=== PATIENT | female | born 1990 | race Caucasian/White ===

== ENCOUNTER 2022-05-30 18:52 | Emergency (ER) | payer BC, SELFPAY ==
[2022-05-30] VITALS (7 sets, daily range): BP systolic 117; BP diastolic 85; PULSE 69–106; RESP 16–18; TEMP 36.6–37; O2SAT 95–96; BMI 38.9
--- NOTE | 2022-05-30 19:10 | ED_ITS ---
HPI - Psych General Chief Complaint: Psychiatric Symptoms Stated Complaint: Crisis/ Anxiety Time Seen by Provider: 05/30/22 19:35 Related Data Home Medications Medication Instructions Recorded Confirmed benzonatate 100 mg capsule 2 cap PO TID PRN Cough 05/30/22 05/30/22 fluoxetine 20 mg capsule 1 cap PO DAILY 05/30/22 05/30/22 naproxen 500 mg tablet 1 tab PO BID PRN pain 05/30/22 05/30/22 Allergies Allergy/AdvReac Type Severity Reaction Status Date / Time No Known Allergies Allergy Unverified 12/18/19 19:27 [No Known Allergies*] [facility] Past Medical History Medical History (Updated 06/01/22 @ 00:00 by Background Daemon) Depression Social History Social History Alcohol intake: never Physical Exam Vital Signs: Vital Signs: Last Vital Signs Temp 98.3 F 05/31/22 10:30 Pulse 76 05/31/22 10:30 Resp 16 05/31/22 10:30 BP 112/62 05/31/22 10:30 Pulse Ox 99 05/31/22 10:30 O2 Del Method 05/31/22 10:30 BMI result Body Mass Index 38.9 Course Course Course Narrative: RME--32-year-old female with PMHx anxiety/depression presenting to ED with mother and sister for increasing depression/anxiety and change in mental status. History obtained from mother and sister as patient mute, not interactive with triage. They admit to similar sx in the past, patient was hospitalized about 3yrs ago Labs, UA, MOREAU, COVID ordered, patient will be brought back to POD Medications Administered Discontinued Medications Generic Name Dose Route Start Last Admin Trade Name Estefani PRN Reason Stop Dose Admin Lorazepam 2 mg 05/31/22 01:18 05/31/22 01:39 Lorazepam 1 Mg Tablet PO 05/31/22 01:19 2 mg ONCE ONE Administration Lorazepam 1 mg 05/31/22 12:35 05/31/22 15:43 Lorazepam 1 Mg Tablet PO 1 mg TID KIM Administration Olanzapine 5 mg 05/30/22 20:07 05/30/22 21:08 Olanzapine 5 Mg Tablet PO 05/30/22 20:08 Not Given ONCE ONE Olanzapine 10 mg 05/30/22 21:19 05/30/22 21:35 Olanzapine 10 Mg Vial IM 05/30/22 21:20 10 mg ONCE ONE Administration Olanzapine 10 mg 05/31/22 01:18 05/31/22 01:40 Olanzapine 10 Mg Tablet PO 05/31/22 01:19 10 mg ONCE ONE Administration Medical Decision Making Lab Data 05/31/22 10:35 05/31/22 10:35 Labs: Lab Results 05/30/22 05/31/22 05/31/22 Range/Units 21:43 10:35 10:35 WBC 7.8 (4.8-10.8) X10*3/uL RBC 4.23 (4.20-5.50) X10*6/uL Hgb 11.3 L (12.0-16.0) g/dl Hct 35.9 L (37.0-47.0) % MCV 84.9 (80.0-98.0) fL MCH 26.7 L (27.0-33.0) pg MCHC 31.5 (31.0-35.0) g/dl RDW 15.4 (11.0-16.0) % Plt Count 260 (160-400) X10*3/uL MPV 10.3 (9.4-12.3) fL Immature Gran % (Auto) 0.1 (0.0-0.4) % Neut % (Auto) 53.1 (45-73) % Lymph % (Auto) 39.3 (20-40) % Green % (Auto) 6.4 (2-11) % Eos % (Auto) 0.8 (0-4) % Baso % (Auto) 0.3 (0-2) % Lymph # (Auto) 3.1 (1.2-4.9) X10*3/uL Green # (Auto) 0.5 (0.1-1.2) X10*3/uL Eos # (Auto) 0.1 (0.0-0.4) X10*3/uL Baso # (Auto) 0.0 (0.0-0.2) X10*3/uL Abs Immat Gran (auto) 0.01 (0.00-0.03) X10*3/uL Absolute Neuts (auto) 4.2 (2.0-8.3) x10*3/uL Absolute Nucleated RBC 0.000 (0.0-0.012) X10*3/uL Nucleated RBC % (auto) 0.0 (0.0-0.2) /100WBC Sodium 142 (135-145) mmol/L Potassium 4.3 (3.3-5.1) mmol/L Chloride 108 (96-108) mmol/L Carbon Dioxide 28 (22-29) mmol/L Anion Gap 10 L (12-20) BUN 11 (9-16) mg/dL Creatinine 0.68 (0.5-1.4) mg/dL Estim Creat Clear Calc 135.0 Estimated GFR > 60 Random Glucose 81 (60-115) mg/dL Calcium 9.2 (8.4-10.2) mg/dL Magnesium 1.9 (1.6-2.6) mg/dL Total Bilirubin 0.7 (0.0-1.0) mg/dL Direct Bilirubin 0.2 (0.0-0.5) mg/dL AST 19 (5-31) U/L ALT 24 (0-31) U/L Alkaline Phosphatase 72 (39-117) U/L Total Protein 7.5 (6.5-8.0) g/dL Albumin 3.9 (3.5-5.0) g/dL Urine Color Urine Appearance Urine pH (5.0-9.0) Ur Specific [place] (1.005-1.025) Urine Protein (Neg-Trace) mg/dL Urine Glucose (UA) (Negative) mg/dL Urine Ketones (Negative) mg/dL Urine Blood (Negative) Urine Nitrite (Negative) Ur Leukocyte Esterase (Negative) Urine RBC (0-2) /HPF Urine WBC (0-5) /HPF Ur Squamous Epith Cells (0-2) /HPF Urine Bacteria (None Seen) Hyaline Casts (0-2) /LPF Urine Test (NEGATIVE) Salicylates < 5.0 L (15-30) mg/dL Urine Opiates Screen (Not Detect) Urine Fentanyl Screen (Not Detect) Acetaminophen < 17 (<30) mcg/mL Ur Barbiturates Screen (Not Detect) Ur Phencyclidine Scrn (Not Detect) Ur Amphetamines Screen (Not Detect) U Benzodiazepines Scrn (Not Detect) Urine Cocaine Screen (Not Detect) U Marijuana (THC) Screen (Not Detect) COVID-19 (SHARONDA) Negative (Negative) COVID-19 Clin Com See Note 05/31/22 05/31/22 05/31/22 Range/Units 11:32 11:32 11:32 WBC (4.8-10.8) X10*3/uL RBC (4.20-5.50) X10*6/uL Hgb (12.0-16.0) g/dl Hct (37.0-47.0) % MCV (80.0-98.0) fL MCH (27.0-33.0) pg MCHC (31.0-35.0) g/dl RDW (11.0-16.0) % Plt Count (160-400) X10*3/uL MPV (9.4-12.3) fL Immature Gran % (Auto) (0.0-0.4) % Neut % (Auto) (45-73) % Lymph % (Auto) (20-40) % Green % (Auto) (2-11) % Eos % (Auto) (0-4) % Baso % (Auto) (0-2) % Lymph # (Auto) (1.2-4.9) X10*3/uL Green # (Auto) (0.1-1.2) X10*3/uL Eos # (Auto) (0.0-0.4) X10*3/uL Baso # (Auto) (0.0-0.2) X10*3/uL Abs Immat Gran (auto) (0.00-0.03) X10*3/uL Absolute Neuts (auto) (2.0-8.3) x10*3/uL Absolute Nucleated RBC (0.0-0.012) X10*3/uL Nucleated RBC % (auto) (0.0-0.2) /100WBC Sodium (135-145) mmol/L Potassium (3.3-5.1) mmol/L Chloride (96-108) mmol/L Carbon Dioxide (22-29) mmol/L Anion Gap (12-20) BUN (9-16) mg/dL Creatinine (0.5-1.4) mg/dL Estim Creat Clear Calc Estimated GFR Random Glucose (60-115) mg/dL Calcium (8.4-10.2) mg/dL Magnesium (1.6-2.6) mg/dL Total Bilirubin (0.0-1.0) mg/dL Direct Bilirubin (0.0-0.5) mg/dL AST (5-31) U/L ALT (0-31) U/L Alkaline Phosphatase (39-117) U/L Total Protein (6.5-8.0) g/dL Albumin (3.5-5.0) g/dL Urine Color Yellow Urine Appearance Clear Urine pH 6.0 (5.0-9.0) Ur Specific [place] 1.015 (1.005-1.025) Urine Protein Negative (Neg-Trace) mg/dL Urine Glucose (UA) Negative (Negative) mg/dL Urine Ketones 40 (Negative) mg/dL Urine Blood Negative (Negative) Urine Nitrite Negative (Negative) Ur Leukocyte Esterase Trace H (Negative) Urine RBC 3-5 H (0-2) /HPF Urine WBC 0-5 (0-5) /HPF Ur Squamous Epith Cells 0-2 (0-2) /HPF Urine Bacteria Trace (None Seen) Hyaline Casts 0-2 (0-2) /LPF Urine Test NEGATIVE (NEGATIVE) Salicylates (15-30) mg/dL Urine Opiates Screen Not Detected (Not Detect) Urine Fentanyl Screen Not Detected (Not Detect) Acetaminophen (<30) mcg/mL Ur Barbiturates Screen Not Detected (Not Detect) Ur Phencyclidine Scrn Not Detected (Not Detect) Ur Amphetamines Screen Not Detected (Not Detect) U Benzodiazepines Scrn Not Detected (Not Detect) Urine Cocaine Screen Not Detected (Not Detect) U Marijuana (THC) Screen Not Detected (Not Detect) COVID-19 (SHARONDA) (Negative) COVID-19 Clin Com Discharge Plan Discharge Clinical Impression: Depression Patient Disposition: Home, Self-Care Instructions: Depression (ED) Prescriptions: No Action benzonatate 100 mg capsule 2 cap PO TID PRN (Reason: Cough) fluoxetine 20 mg capsule 1 cap PO DAILY naproxen 500 mg tablet 1 tab PO BID PRN (Reason: pain) Stand Alone Forms: Work/School Release Interventions: [place]-Suicide Risk Severity Scale Last Done: 05/31/22 15:00 ED Discharge Assessment Last Done: 05/31/22 16:47 Discharge Date/Time: 05/31/22 16:49
--- NOTE | 2022-05-30 19:58 | MHC.EDTECH ---
This PCT attempted to draw labs and a covid swab,patient ripped tourniquet off and pushed my hand away. Melodie Alanis was made aware,and will re-attempt later.
--- NOTE | 2022-05-30 21:00 | ED_ITS ---
HPI - Psych General Chief Complaint: Psychiatric Symptoms Stated Complaint: Crisis/ Anxiety Time Seen by Provider: 05/30/22 19:35 Source: RN notes reviewed Mode of arrival: ambulatory Limitations: other (Unwilling to talk) History of Present Illness HPI Narrative: Patient comes to the emergency room accompanied by her sister. At this time, patient's sister is no longer here in the emergency room. I was able to get the story from the patient's nurse. Seems that the patient has had insomnia for a few days, patient has history of depression. The sister indicated that the patient has had significant stressors at work. I am unable to get any history from the patient. Patient is standing by her room, arms crossed, not answering any questions, refusing to take any medications, refusing to be moved back into her room. Unknown if patient is suicidal or homicidal, patient any questions at all Related Data Home Medications Medication Instructions Recorded Confirmed benzonatate 100 mg capsule 2 cap PO TID PRN Cough 05/30/22 05/30/22 fluoxetine 20 mg capsule 1 cap PO DAILY 05/30/22 05/30/22 naproxen 500 mg tablet 1 tab PO BID PRN pain 05/30/22 05/30/22 Allergies Allergy/AdvReac Type Severity Reaction Status Date / Time No Known Allergies Allergy Unverified 12/18/19 19:27 [No Known Allergies*] Review of Systems Review of Systems: Yes Unobtainable due to mental status PMFSH Past Medical History Medical History (Updated 05/30/22 @ 21:09 by Pam Montilla MD) Depression Social History Social History Advance Directives: No Advance Directives Information Provided: Yes Physical Exam Vital Signs: Vital Signs: Last Vital Signs Temp 98.6 F 05/30/22 19:09 Pulse 106 H 05/30/22 19:09 Resp 18 05/30/22 19:09 Pulse Ox 96 05/30/22 19:09 O2 Del Method 05/30/22 19:09 BMI result Body Mass Index 38.9 Const: Other: Appearance: Alert. No acute distress. Eyes: Pupils equal, round and reactive to light. ENT: Pharynx normal. Neck: Normal inspection. Neck supple. No lymph nodes noted. No crepitus CVS: Normal pulses Respiratory: No respiratory distress. Breath sounds normal. No Wheezing. No rales Abdomen: Soft and nontender. No rigidity. No distention. Skin: Skin warm and dry. Normal skin color. Normal skin turgor. Extremities: No lower extremity edema. No Lacerations. No Rash Neuro: Cranial nerves 2-12 grossly intact Psych: calm, standing by the door in her room with her arms crossed, unwilling to talk, unwilling to walk back into her room. Course Course Course Narrative: -we attempted giving the patient p.o. in stepping, patient refused. -patient talking, standing, not moving. 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 Patient is not combative, we will re- evaluating couple of hours -all of patient's labs are pending -physician after patient started at 21:10 Discharge Plan Discharge Clinical Impression: Depression Patient Disposition: Still a Patient Prescriptions: No Action benzonatate 100 mg capsule 2 cap PO TID PRN (Reason: Cough) fluoxetine 20 mg capsule 1 cap PO DAILY naproxen 500 mg tablet 1 tab PO BID PRN (Reason: pain)
[2022-05-30] MEDS: OLANZapine 10 MG VIAL IM (21:35)
--- NOTE | 2022-05-30 21:53 | PC.NURSE ---
Patient is uncooperative with all labs order, refused to follow quarantine protocol, refused to take medication, intrusive, when asked to stay in her room patient got agitated, combative, and physical with staff member, provider notified/ordered Olanzapine 10 mg IM/administered as ordered @ 2134/pending effect, patient is on 1:1 per safety protocol until 2234, refused vital sign assessment, will continue to monitor.
[2022-05-30 22:24] LABS: COVID-19 Test Negative (Negative); IDNOW Serial# 6674DD1D
[2022-05-31] MEDS: LORazepam 1 MG TABLET 2 MG PO (01:39)
[2022-05-31] MEDS: OLANZapine 10 MG TABLET PO (01:40)
[2022-05-31 05:28] VITALS: RESP 18
--- NOTE | 2022-05-31 05:38 | PC.NURSE ---
Patient s/p chemical restraint and was up until 244, Ativan 2 mg po and Olanzapine 10 mg PO administered at 0140, accepted after cueing with + effect, patient has been sleeping since 244, patient thought content is paranoid, patient has progressively transitioned from non-verbal at the time arrival to hypo-verbal at this time, med rec completed/pending provider's approval, continue refusing blood work and providing urine sample, care consult ordered/pending evaluation in the morning, will continue to monitor.
--- NOTE | 2022-05-31 09:14 | MHC.CARE ---
Collateral contacts, following conversation with patient's mother, Shay include patient's prescriber Huma Novak [phone] and therapist Jaye Coronado [phone]
--- NOTE | 2022-05-31 10:04 | PC.NURSE ---
Pt remains asleep at this time.
[2022-05-31 10:30] VITALS: BP 112/62; PULSE 76; RESP 16; TEMP 36.8; O2SAT 99
[2022-05-31 10:45] LABS: MANUAL DIFF FLAG NO
[2022-05-31 10:49] LABS: Basophils Percent Auto 0.3 % (0-2); Eosinophils Absolute Auto 0.1 X10*3/uL (0.0-0.4); Eosinophils Percent Auto 0.8 % (0-4); Hematocrit 35.9 % (37.0-47.0); Hemoglobin 11.3 g/dl (12.0-16.0); Imm Gran Abs Auto 0.01 X10*3/uL (0.00-0.03); Imm Gran Pct Auto 0.1 % (0.0-0.4); Lymphocytes Absolute Auto 3.1 X10*3/uL (1.2-4.9); Lymphocytes Percent Auto 39.3 % (20-40); Mean Corpuscular HGB Conc 31.5 g/dl (31.0-35.0); Mean Corpuscular Hemoglobin 26.7 pg (27.0-33.0); Mean Corpuscular Volume 84.9 fL (80.0-98.0); Mean Platelet Volume 10.3 fL (9.4-12.3); Monocytes Absolute Auto 0.5 X10*3/uL (0.1-1.2); Monocytes Percent Auto 6.4 % (2-11); Neutrophils Absolute Auto 4.2 x10*3/uL (2.0-8.3); Neutrophils Percent Auto 53.1 % (45-73); Platelet Count 260 X10*3/uL (160-400); Red Blood Count 4.23 X10*6/uL (4.20-5.50); Red Cell Distribution Width 15.4 % (11.0-16.0); White Blood Count 7.8 X10*3/uL (4.8-10.8)
[2022-05-31 11:09] LABS: Alanine Aminotransferase 24 U/L (0-31); Albumin Level 3.9 g/dL (3.5-5.0); Alkaline Phosphatase 72 U/L (39-117); Anion Gap 10 (12-20); Aspartate Amino Transferase 19 U/L (5-31); Bilirubin Direct 0.2 mg/dL (0.0-0.5); Bilirubin Total 0.7 mg/dL (0.0-1.0); Blood Urea Nitrogen 11 mg/dL (9-16); Calcium 9.2 mg/dL (8.4-10.2); Carbon Dioxide 28 mmol/L (22-29); Chloride 108 mmol/L (96-108); Estimated Glomerular Filt Rate > 60; Glucose Random 81 mg/dL (60-115); Magnesium 1.9 mg/dL (1.6-2.6); Potassium 4.3 mmol/L (3.3-5.1); Sodium 142 mmol/L (135-145); Total Protein 7.5 g/dL (6.5-8.0)
[2022-05-31 11:43] LABS: Appearance Urine Clear; Color Urine Yellow; Glucose Urine UA Negative (Negative); Leukocyte Esterase Urine Trace (Negative); Nitrite Urine Negative (Negative); Specific Gravity - Urine 1.015 (1.005-1.025); UMIC TRIGGER UACC YES; Urine Blood Negative (Negative); Urine Ketones 40 mg/dL (Negative); Urine Protein Negative (Neg-Trace)
[2022-05-31 11:47] LABS: Bacteria Urine Trace (None Seen); Hyaline Casts Urine 0-2 /LPF (0-2); Squamous Epithelial Cell Urine 0-2 /HPF (0-2); WBC Urine 0-5 /HPF (0-5)
[2022-05-31 11:48] LABS: UPreg QC Valid YES; Urine Pregnancy NEGATIVE (NEGATIVE)
[2022-05-31 11:55] LABS: Amphetamine Screen Urine Not Detected (Not Detect); Barbiturates, Urine Not Detected (Not Detect); Benzodiazepines Screen Urine Not Detected (Not Detect); Cannabinoid Screen Urine Not Detected (Not Detect); Cocaine Screen Urine Not Detected (Not Detect); Fentanyl, urine Not Detected (Not Detect); Opiate Screen Urine Not Detected (Not Detect); Phencyclidine Screen Urine Not Detected (Not Detect)
--- NOTE | 2022-05-31 12:15 | PM.PSYCN ---
History of Present Illness Date of Service: 05/31/2022 Chief Complaint: Crisis/ Anxiety Reason for Consult: catatonia Discussed with referring provider: Yes Sources of Information: patient interviewed, chart reviewed and crisis/core team assessment reviewed HPI Narrative: Ms. Ferraro is a 32 year-old woman with hx of depression, catatonia who was brought in by mother and sister as pt presenting with mutism, staring at the wall, not eating for the past week or so. Prior to that it appears pt had engaged in more impulsive, riskier behaviors such as having sex with stranger at bar, which per pt is out of character. In the ED, pt presented as mute, not interacting. Utox is negative. Pt received ativan 2mg po and olanzapine 10mg po and this morning pt more talkative. Pt reports she was sitting in edge of her bed, not talking. She reports she was having difficulty making even little decisions. She is tearful. She denies SI/HI. She does report that she is feeling better. She reports not sleeping well. She does report that prior to this episode she noticed changed in behavior, being more impulsive and some erratic behaviors (sex with stranger at bar). No overt paranoid or delusional content noted or reported. She reports she was taking combination of prozac with olanzapine but stopped olanzapine some months ago due to sedation. Past Psychiatric History: Inpatient: [facility] 2019 catatonia and depression [facility] Medical History (Updated 05/31/22 @ 12:23 by Carrie Farooq) Depression Diagnostics Vital Signs (24Hr): Vital Signs - 24 hr 05/30/22 19:09 05/30/22 21:35 05/30/22 21:50 Temperature 98.6 F Pulse Rate 106 H Respiratory Rate 18 18 18 Blood Pressure Pulse Oximetry 96 Oxygen Delivery Method Room Air 05/30/22 22:05 05/30/22 22:20 05/30/22 22:35 Temperature Pulse Rate Respiratory Rate 16 16 18 Blood Pressure Pulse Oximetry Oxygen Delivery Method 05/30/22 23:00 05/31/22 05:28 05/31/22 10:30 Temperature 97.8 F 98.3 F Pulse Rate 69 76 Respiratory Rate 17 18 16 Blood Pressure 117/85 112/62 Pulse Oximetry 95 99 Oxygen Delivery Method Room Air Room Air BMI result Body Mass Index 38.9 Labs 05/31/22 10:35 05/31/22 10:35 Labs: Laboratory Results - last 48 hr 05/30/22 05/31/22 05/31/22 21:43 10:35 10:35 WBC 7.8 RBC 4.23 Hgb 11.3 L Hct 35.9 L MCV 84.9 MCH 26.7 L MCHC 31.5 RDW 15.4 Plt Count 260 MPV 10.3 Immature Gran % (Auto) 0.1 Neut % (Auto) 53.1 Lymph % (Auto) 39.3 [place] % (Auto) 6.4 Eos % (Auto) 0.8 Baso % (Auto) 0.3 Lymph # (Auto) 3.1 [place] # (Auto) 0.5 Eos # (Auto) 0.1 Baso # (Auto) 0.0 Abs Immat Gran (auto) 0.01 Absolute Neuts (auto) 4.2 Absolute Nucleated RBC 0.000 Nucleated RBC % (auto) 0.0 Sodium 142 Potassium 4.3 Chloride 108 Carbon Dioxide 28 Anion Gap 10 L BUN 11 Creatinine 0.68 Estim Creat Clear Calc 135.0 Estimated GFR > 60 Random Glucose 81 Calcium 9.2 Magnesium 1.9 Total Bilirubin 0.7 Direct Bilirubin 0.2 AST 19 ALT 24 Alkaline Phosphatase 72 Total Protein 7.5 Albumin 3.9 Urine Color Urine Appearance Urine pH Ur Specific [place] Urine Protein Urine Glucose (UA) Urine Ketones Urine Blood Urine Nitrite Ur Leukocyte Esterase Urine RBC Urine WBC Ur Squamous Epith Cells Urine Bacteria Hyaline Casts Urine Test Urine Opiates Screen Urine Fentanyl Screen Ur Barbiturates Screen Ur Phencyclidine Scrn Ur Amphetamines Screen U Benzodiazepines Scrn Urine Cocaine Screen U Marijuana (THC) Screen COVID-19 (SHARONDA) Negative COVID-19 Clin Com See Note 05/31/22 05/31/22 05/31/22 11:32 11:32 11:32 WBC RBC Hgb Hct MCV MCH MCHC RDW Plt Count MPV Immature Gran % (Auto) Neut % (Auto) Lymph % (Auto) [place] % (Auto) Eos % (Auto) Baso % (Auto) Lymph # (Auto) [place] # (Auto) Eos # (Auto) Baso # (Auto) Abs Immat Gran (auto) Absolute Neuts (auto) Absolute Nucleated RBC Nucleated RBC % (auto) Sodium Potassium Chloride Carbon Dioxide Anion Gap BUN Creatinine Estim Creat Clear Calc Estimated GFR Random Glucose Calcium Magnesium Total Bilirubin Direct Bilirubin AST ALT Alkaline Phosphatase Total Protein Albumin Urine Color Yellow Urine Appearance Clear Urine pH 6.0 Ur Specific [place] 1.015 Urine Protein Negative Urine Glucose (UA) Negative Urine Ketones 40 Urine Blood Negative Urine Nitrite Negative Ur Leukocyte Esterase Trace H Urine RBC 3-5 H Urine WBC 0-5 Ur Squamous Epith Cells 0-2 Urine Bacteria Trace Hyaline Casts 0-2 Urine Test NEGATIVE Urine Opiates Screen Not Detected Urine Fentanyl Screen Not Detected Ur Barbiturates Screen Not Detected Ur Phencyclidine Scrn Not Detected Ur Amphetamines Screen Not Detected U Benzodiazepines Scrn Not Detected Urine Cocaine Screen Not Detected U Marijuana (THC) Screen Not Detected COVID-19 (SHARONDA) COVID-19 Clin Com Mental Status Exam Mental Status Exam Narrative: Appearance: wearing hospital gown, tearful, in nad behavior: slightly guarded Psychomotor: less retardation Speech: clear, some mild delay in response, spontaneous TP: goal oriented in that she wants to go home soon TC: no overt psychosis but noting that she had been feeling more anxious, unable to talk not able to make decisions Mood: better Affect: constricted, somewhat tearful SI: none HI: none VH/AH: none Delusions: no overt delusional content, somewhat guarded. Insight/judgment: fair x 2. Memory/cog: alert, oriented x 3. Medications Allergies Allergies Allergy/AdvReac Type Severity Reaction Status Date / Time No Known Allergies Allergy Unverified 12/18/19 19:27 [No Known Allergies*] Assessment & Plan Assessment & Plan (1) Bipolar 1 disorder, depressed, moderate: Status: Acute Code(s): F31.32 - Bipolar disorder, current episode depressed, moderate Plan Ms. Ferraro is a 32 year-old woman with what appears to be Bipolar Disorder, more than unipolar depression brought in by mother as pt has presented as mute, not eating, not sleeping, staring at wall consistent with catatonia. Family reports similar episode back in 2019 treated for catatonia. Pt in ED presented as mute. She received ativan 2mg po and olanzapine 10mg po daily with good effect. Today, pt more talkative although somewhat guarded and still struggling with making decisions including deciding on what sandwich to eat (also s/s of catatonia). Of note, prior to catatonic episode, pt reports changes in behavior, more impulsive and engaging in risky decisions which are out of character for her such as having sex with stranger in bar. She used to be on combination of olanzapine and prozac but stopped olanzapine some months ago due to sedation. We discussed risks, benefits and alternative treatment options. Pt agrees to schedule ativan 1mg po TID. she may benefit from antipsychotic, either olanzapine or newer medications with less sedation and less weight gain such as latuda (however, this medication requires pt to take it with at least 350 calories to be absorbed). PLAN 1. schedule ativan 1mg po TID, continue for now olanzapine 5-10mg po daily. additional ativan doses if pt presents more mute, staring at wall, not eating. Total time managing care of this patient today ____ minutes.
[2022-05-31] MEDS: LORazepam 1 MG TABLET PO ×2 (12:43→15:43)
--- NOTE | 2022-05-31 14:52 | MHC.CARE ---
Patient slated for d/c at 4p, mother coming to get her. Noted for a follow up call in the morning. RN notified of patient's need for a work related form due to absences.
[2022-05-31 16:16] LABS: Salicylate < 5.0 mg/dL (15-30)
--- NOTE | 2022-05-31 16:33 | PC.NURSE ---
Belongings returned, pts ride arrived in waiting area.
[2022-05-31 16:44] LABS: Acetaminophen LAB < 17 mcg/mL (<30)
--- NOTE | 2022-06-01 09:36 | MHC.CARE ---
CARE team completed follow up call with Pt. She reports she is doing OK , mother is with her and providing support. She reports she is waiting for call from her psychiatrist for urgent outpatient appt and will call local crisis team if needed for support.
--- NOTE | 2022-06-01 09:41 | MHC.CARE ---
CARE team called [employer]PER[employer] Huma Novak left message with gentle reminder to call Pt and schedule sooner appt.
== END 2022-05-31 16:49 | disposition home or self-care (01) ==
PROVIDERS: Emergency Medicine; Physician Assistant; Emergency Provider Emergency Medicine
DX: F33.1 Major depressive disorder, recurrent, moderate (principal); F41.1 Generalized anxiety disorder; F43.0 Acute stress reaction; Z20.822 Contact with and (suspected) exposure to COVID-19; Z20.828 Contact with and (suspected) exposure to other viral communicable diseases; Z79.899 Other long term (current) drug therapy
CPT/HCPCS: 36415; 80048; 80076; 80143; 80179; 80307; 81001; 81025; 83735; 85025; 87635; 96372; 99285; S9485